=== PATIENT | male | born 2000 | race American Indian/Alaskan Native ===

== ENCOUNTER 2021-08-30 18:42 | Emergency (ER) | payer SELFPAY ==
[2021-08-30] MEDS ORDERED: HYDROmorphone 1 MG/1 ML INJ ONE (18:44)
[2021-08-30] MEDS ORDERED: SODIUM CHLORIDE 0.9% 1000 ML 2,000 ML ONE (18:44)
[2021-08-30] MEDS ORDERED: ONDANSETRON 4 MG/2 ML INJ ONE (18:44)
[2021-08-30] MEDS ORDERED: SODIUM CHLORIDE 0.9% 1000 ML 1,000 ML IV ONE (18:46)
[2021-08-30] MEDS ORDERED: TETANUS,DIPH,PERTUSS(ACELL) VACCINE 0.5 ML SYRINGE IM ONE (18:49)
[2021-08-30] MEDS ORDERED: HYDROmorphone 1 MG/1 ML INJ IV ONE (19:03)
[2021-08-30] MEDS ORDERED: ONDANSETRON 4 MG/2 ML INJ IV ONE (19:03)
[2021-08-30 19:18] LABS: Basophils # (Auto) 0.1 K/mm3 (0.0-0.1); Basophils % (Auto) 0.9 % (0.0-1.8); Eosinophils % (Auto) 0.6 % (0.0-4.3); Hematocrit 41.8 % (35.5-45.6); Hemoglobin 13.7 gm/dl (11.8-15.2); Lymphocytes % (Auto) 29.2 % (13.4-35.0); Mean Corpuscular HGB Conc 33 % (32-34); Mean Corpuscular Volume 94 fl (84-94); Monocytes # (Auto) 0.6 K/mm3 (0.0-0.8); Monocytes % (Auto) 8.5 % (0.0-7.3); Platelet Count 222 K/mm3 (140-440); Red Blood Count 4.44 M/mm3 (3.65-5.03)
[2021-08-30] MEDS ORDERED: LIDOCAINE (1%) 10 MG/1 ML VIAL 20 ML MDV INFILTRATI ONE (19:24)
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
[2021-08-30 19:33] LABS: INR 0.91 (0.87-1.13)
[2021-08-30 19:34] LABS: Alanine Aminotransferase 9 units/L (7-56); Albumin 4.3 g/dL (3.9-5); Blood Urea Nitrogen 10 mg/dL (9-20); Calcium 8.7 mg/dL (8.4-10.2); Hemolysis Index 3
[2021-08-30 19:47] LABS: BUN/Creatinine Ratio 14
[2021-08-30] MEDS ORDERED: SODIUM CHLORIDE IRRI 500 ML 500 ML IR ONE (19:55)
[2021-08-30 20:44] LABS: Amphetamine Screen,Urine Negative; Benzodiazepines Screen,Urine Negative; Cocaine Screen,Urine Negative; Methadone Screen,Urine Negative; Opiate Screen,Urine Negative
[2021-08-30 20:57] LABS: Cannabinoid Screen,Urine Positive
[2021-08-30 21:26] LABS: Bilirubin,Urine Negative (Negative); Blood,Urine Negative (Negative); Color,Urine Colorless (Yellow); Protein,Urine <15 mg/dL mg/dL (Negative); Urobilinogen,Urine < 2.0 mg/dL (<2.0)
[2021-08-30] MEDS ORDERED: KETOROLAC 30 MG/1 ML INJ IV ONE (21:26)
[2021-08-30] MEDS ORDERED: SODIUM CHLORIDE 0.9% IRR 500 ML BOTTLE IR ONE (21:26)
[2021-08-30 21:27] LABS: RBC,Urine < 1.0 /HPF (0.0-6.0); WBC,Urine < 1.0 /HPF (0.0-6.0)
[2021-08-30 22:27] VITALS: BP 121/49
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
== END 2021-08-30 23:49 | disposition home or self-care (01) ==
LOC: ED 18:42
DX: S61.412A Laceration without foreign body of left hand, initial encounter (principal); S61.432A Puncture wound without foreign body of left hand, initial encounter; S71.132A Puncture wound without foreign body, left thigh, initial encounter; R79.1 Abnormal coagulation profile; F17.200 Nicotine dependence, unspecified, uncomplicated; Z79.899 Other long term (current) drug therapy; W34.09XA Accidental discharge from other specified firearms, initial encounter; Y93.89 Activity, other specified; Y92.89 Other specified places as the place of occurrence of the external cause; Y99.8 Other external cause status
CPT/HCPCS: 12001; 36415; 73110; 73130; 73206; 73552; 80053; 80307; 81001; 82550; 85025; 85610; 86850; 86900; 86901; 90471; 90715; 96365; 96375; 99284; J0690; J1170; J1885; J2405; J3490; J7030; Q9967; 80320; Q0162; G0480